=== PATIENT | male | born 1980 | race Caucasian/White ===

== ENCOUNTER 2019-01-13 05:37 | Emergency (ER) | payer SELFPAY ==
[2019-01-13] MEDS ORDERED: KETOROLAC TROMETHAMINE INJ 30 MG/ML VIAL IV ONE (05:50)
[2019-01-13] MEDS ORDERED: ONDANSETRON ODT 8 MG TAB SL ONE (05:50)
[2019-01-13] MEDS ORDERED: SODIUM CHLORIDE 0.9% 1000ML 1,000 ML IVS ONE (05:50)
[2019-01-13] MEDS ORDERED: ALUM & MAG HYDROX-SIMETHICONE 30 ML, LIDOCAINE VISCOUS 2% 15 ML PO ONE ×2 (05:50)
[2019-01-13] MEDS ORDERED: MORPHINE SULFATE INJ 10 MG/ML VIAL IV ONE (05:50)
[2019-01-13] MEDS ORDERED: ALUM & MAG HYDROX-SIMETHICONE 30 ML UD ONE (05:53)
[2019-01-13] MEDS ORDERED: LIDOCAINE HCL 2% (MOUTH-THROAT) 15 ML UD ONE (05:53)
--- NOTE | 2019-01-13 05:54 | ED.PDOC ---
History of Present Illness - General Source: patient Exam Limitations: no limitations - History of Present Illness Initial Comments: the patient is a 38-year-old male presenting to emergency room secondary to right upper quadrant pain that has been pretty constant and achy since around midnight. That is approximately 6 hours. He does have some nausea. One episode of vomiting. No diarrhea. No previous problems with right upper quadrant pain. He does still have his gallbladder. He did likely overindulge at Thanksgiving. He does have pain to palpation there. He does have some guarding there. No syncope or near-syncope. No chest pain. Minimal epigastric discomfort at this time. No lower abdominal pain. Timing/Duration: 4-6 hours Severity: severe Improving Factors: other - the pain is a little better with rocking back and forth but not really with movement otherwise. Worsening Factors: nothing Associated Symptoms: loss of appetite, malaise, nausea/vomiting <Dar Lea - Last Filed: 01/13/19 06:45> <Logan Zaragoza - Last Filed: 01/13/19 07:43> - General Chief Complaint: Abdominal Pain Stated Complaint: RUQ pain onset 0000 Time Seen by Provider: 01/13/19 05:44 - History of Present Illness Allergies/Adverse Reactions: Allergies NO KNOWN ALLERGY Allergy (Verified 01/13/19 05:45) Home Medications: Ambulatory Orders Acetaminophen W/ Codeine [Tylenol W/ CODEINE #3] 2 ea PO Q6H PRN #20 01/13/19 Review of Systems - Review of Systems Constitutional: States: no symptoms reported EENTM: States: no symptoms reported Respiratory: States: no symptoms reported Cardiology: States: no symptoms reported Gastrointestinal/Abdominal: States: abdominal pain, nausea, vomiting Genitourinary: States: no symptoms reported Musculoskeletal: States: no symptoms reported Skin: States: no symptoms reported Neurological: States: anxiety Endocrine: States: no symptoms reported, excessive sweating All other Systems: No Change from Baseline <Dar Lea - Last Filed: 01/13/19 06:45> Past Medical History (General) - Patient Medical History Hx Seizures: No Hx Stroke: No Hx Dementia: No Hx Asthma: No Hx of COPD: No Hx Cardiac Disorders: No Hx Congestive Heart Failure: No Hx Pacemaker: No Hx Hypertension: No Hx Thyroid Disease: No Hx Diabetes: No Hx Gastroesophageal Reflux: No Hx Renal Disease: No Hx Cancer: No Hx of HIV: No Hx Hepatitis C: No Hx MRSA: No Surgical History: no surgical history - Vaccination History Hx Tetanus, Diphtheria Vaccination: No Hx Influenza Vaccination: No - Social History Hx Tobacco Use: Yes Hx Alcohol Use: Yes <Dar Lea - Last Filed: 01/13/19 06:45> Family Medical History - Family History Mother Family History: Unknown <Dar Lea - Last Filed: 01/13/19 06:45> Physical Exam - Physical Exam General Appearance: Alert, Anxious, Obvious distress Eye Exam: bilateral normal Ears, Nose, Throat: hearing grossly normal, normal ENT inspection Neck: full range of motion, supple Respiratory: lungs clear, normal breath sounds, no respiratory distress, no accessory muscle use Cardiovascular/Chest: normal peripheral pulses, regular rate, rhythm, no edema Peripheral Pulses: radial,right: 2+, radial,left: 2+, dorsalis pedis,right: 2+, dorsalis pedis,left: 2+ Gastrointestinal/Abdominal: soft, other - see history of present illness. Pain is colicky in nature. 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 Skin Exam: normal color Comments: Vital Signs - 24 hr 01/13/19 05:40 Temperature 97.5 F L Pulse Rate [ 63 monitor] Respiratory 20 Rate Blood Pressure 148/108 [Left Arm] O2 Sat by Pulse 99 Oximetry <Dar Lea - Last Filed: 01/13/19 06:45> Progress - Progress Progress: 01/13/19 06:36 the patient's symptoms have somewhat improved with Toradol, morphine and Zofran. He is also being bolused a liter of IV fluids. Laboratory work does indicate some significant leukocytosis. X-ray of the abdomen and pelvis shows a few scattered dilated loops of bowel. No definitive obstruction. No free air. A CT scan of the abdomen and pelvis is going to be ordered with contrast. He will remain nothing by mouth for now. - Results/Orders Results/Orders: EKG taken when the patient was at his most nauseated shows a sinus bradycardia 53 bpm with occasional PACs. He does have an early right bundle branch block. He does have mild diffuse J-point elevation all less than [address] segment or T-wave changes indicative of acute ischemia. No previous EKGs for comparison. Normal axis. acute abdominal series shows a few scattered mildly dilated loops of bowel. No definitive obstruction. No perforation. See report for details. <Dar Lea - Last Filed: 01/13/19 06:45> - Progress Progress: Patient turned over to me by Dr. Lea. Patient's CAT scan has resulted and shows distention of the gallbladder with gallstones but no obvious cholecystitis. I am told by nursing staff that we do not have ultrasound services today. Patient's LFTs are normal with the exception of mildly elevated bilirubin and his WBC is elevated at 15. Patient reexamined and he indicates that he is completely pain free. His abdominal exam by me at this time reveals no right upper quadrant tenderness to palpation and despite his elevated WBC I have low clinical suspicion for cholecystitis. I have offered patient admission for cholecystectomy but patient declines saying that he feels well and would prefer to follow up as an outpatient with the general surgeon. I have attempted to contact Dr. 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 Will give patient a referral to Dr. Andre and I have discussed with him strict return to ED precautions to include but not limited to uncontrolled pain, vomiting, and fever. Vital signs stable, patient NAD and looks clinically well and is safe for discharge with outpatient follow-up. Follow-up instructions, discharge instructions and return to ED precautions discussed with patient, Patient voices understanding and willingness to comply with instructions. All laboratory and radiographic results have been discussed with the patient, and all questions answered.. Patient happy with plan. -- Darell Zaragoza MD 01/13/19 07:32 - Results/Orders Results/Orders: 01/13/19 06:00 EKG STAT 01/13/19 06:34 Hold Metformin x 48Hrs [id number] 01/13/19 07:19 Piperacillin/Tazobactam [Zosyn] 3.375 gm Sodium Chloride 0.9% 100Ml [NS (NACL 0.9%) 100ml] 100 ml IVPB ONCE Laboratory Results - last 24 hr 01/13/19 01/13/19 01/13/19 06:00 06:00 06:00 WBC 15.0 H RBC 4.75 Hgb 14.5 Hct 40.8 L MCV 86.0 MCH 30.5 MCHC 35.5 RDW 16.8 H Plt Count 220 MPV 8.7 Absolute Neuts (auto) 12.40 H Absolute Lymphs (auto) 1.60 Absolute Monos (auto) 0.80 Absolute Eos (auto) 0.10 Absolute Basos (auto) 0.10 Neutrophils % 82.5 H Lymphocytes % 10.9 L Monocytes % 5.3 Eosinophils % 0.6 L Basophils % 0.7 Sodium 142 Potassium 3.8 Chloride 105 Carbon Dioxide 24 Anion Gap 16.8 BUN 18 Creatinine 0.98 BUN/Creatinine Ratio 18.4 Random Glucose 151 H Serum Osmolality 287.9 Lactic Acid 2.1 Calcium 9.9 Magnesium 2.2 Total Bilirubin 2.0 H AST 18 ALT 20 Alkaline Phosphatase 75 Creatine Kinase 93 CK-MB (CK-2) 2.0 CK-MB (CK-2) % Not Reportable Troponin I < 0.02 B-Natriuretic Peptide 23.8 Serum Total Protein 7.9 Albumin 4.8 Globulin 3.1 Albumin/Globulin Ratio 1.5 Amylase 33 Lipase 29 Urine Color Urine Appearance Urine pH Ur Specific Lincoln Urine Protein Urine Glucose (UA) Urine Ketones Urine Blood Urine Nitrite Urine Bilirubin Urine Urobilinogen Ur Leukocyte Esterase Urine RBC Urine WBC Ur Epithelial Cells Urine Bacteria 01/13/19 06:50 WBC RBC Hgb Hct MCV MCH MCHC RDW Plt Count MPV Absolute Neuts (auto) Absolute Lymphs (auto) Absolute Monos (auto) Absolute Eos (auto) Absolute Basos (auto) Neutrophils % Lymphocytes % Monocytes % Eosinophils % Basophils % Sodium Potassium Chloride Carbon Dioxide Anion Gap BUN Creatinine BUN/Creatinine Ratio Random Glucose Serum Osmolality Lactic Acid Calcium Magnesium Total Bilirubin AST ALT Alkaline Phosphatase Creatine Kinase CK-MB (CK-2) CK-MB (CK-2) % Troponin I B-Natriuretic Peptide Serum Total Protein Albumin Globulin Albumin/Globulin Ratio Amylase Lipase Urine Color Yellow Urine Appearance Clear Urine pH 6.0 Ur Specific Lincoln 1.020 Urine Protein Negative Urine Glucose (UA) Negative Urine Ketones Negative Urine Blood Negative Urine Nitrite NegativeCT Urine Bilirubin Negative Urine Urobilinogen 0.2 Ur Leukocyte Esterase Negative Urine RBC 0 Urine WBC 0 Ur Epithelial Cells 1-3 Urine Bacteria 0 CTAP: IMPRESSION: 1. Distended gallbladder with multiple gallstones. Right upper quadrant ultrasound may be obtained for further evaluation as clinically warranted 2. Splenomegaly, nonspecific. <Logan Zaragoza - Last Filed: 01/13/19 07:43> Departure <Dar Lea - Last Filed: 01/13/19 06:45> - Departure Time of Disposition: 07:40 Diet: low fat, low cholesterol <Logan Zaragoza - Last Filed: 01/13/19 07:43> - Departure Clinical Impression: Biliary colic Abdominal pain Qualifiers: Abdominal location: right upper quadrant Qualified Code(s): R10.11 - Right upper quadrant pain Gallstones without obstruction of gallbladder Qualifiers: Cholelithiasis location: gallbladder Disposition: Discharge to Home or Self Care Condition: Good Departure Forms: ED Discharge - Pt. Copy, Patient Portal Self Enrollment Instructions: DI for Abdominal Pain-Adult, Gallstones (DC) Referrals: Shaka Andre MD [Active Staff] - 1-2 Days (For consideration of gallbladder surgery) Prescriptions: Acetaminophen W/ Codeine [Tylenol W/ CODEINE #3] 2 ea PO Q6H PRN #20 PRN Reason: Pain Home Medications: Ambulatory Orders Acetaminophen W/ Codeine [Tylenol W/ CODEINE #3] 2 ea PO Q6H PRN #20 01/13/19
--- NOTE | 2019-01-13 06:30 | RAD ---
EXAM: XR Abdomen, 2 Views and XR Chest, 1 View CLINICAL HISTORY: The patient is 38 years old and is Male; ruq pain 5 hours TECHNIQUE: Frontal view of the chest, frontal view of the abdomen/pelvis and upright or decubitus view of the abdomen. COMPARISON: No relevant prior studies available. FINDINGS: Lungs: No acute lung findings. No focal lung consolidation. Pleural space: Unremarkable. No pneumothorax. Heart: Unremarkable. No cardiomegaly. Mediastinum: Unremarkable. Intraperitoneal space: No free air. Gastrointestinal tract: Scattered gas-distended loops of bowel in a nonspecific but nonobstructive pattern. Bones/joints: Unremarkable. IMPRESSION: 1. Scattered gas-distended loops of bowel in a nonspecific but nonobstructive pattern. 2. No acute lung findings. No focal lung consolidation. Electronically signed by: Rodriguez Ulloa MD 01/13/2019 6:28 AM [facility]
--- NOTE | 2019-01-13 07:02 | CT ---
EXAM: CT Abdomen and Pelvis With Intravenous Contrast CLINICAL HISTORY: The patient is 38 years old and is Male; ruq pain 6 hours, leukocytosis TECHNIQUE: Axial computed tomography images of the abdomen and pelvis with intravenous contrast. Sagittal and coronal reformatted images were created and reviewed. This CT exam was performed using one or more of the following dose reduction techniques: automated exposure control, adjustment of the mA and/or kV according to patient size, and/or use of iterative reconstruction technique. COMPARISON: No relevant prior studies available. FINDINGS: Lung bases: Unremarkable. No mass. No consolidation. ABDOMEN: Liver: Unremarkable. No mass. Gallbladder and bile ducts: Distended gallbladder with multiple gallstones. No ductal dilation. Pancreas: Unremarkable. No mass. No ductal dilation. Spleen: Splenomegaly, nonspecific. Adrenals: Unremarkable. No mass. Kidneys and ureters: Unremarkable. No solid mass. No hydronephrosis. Stomach and bowel: Unremarkable. No obstruction. No mucosal thickening. PELVIS: Appendix: No findings to suggest acute appendicitis. Bladder: Unremarkable. No mass. Reproductive: Unremarkable as visualized. ABDOMEN and PELVIS: Intraperitoneal space: Unremarkable. No free air. No significant fluid collection. Bones/joints: No acute fracture. No dislocation. Soft tissues: Unremarkable. Vasculature: Unremarkable. No abdominal aortic aneurysm. Lymph nodes: Unremarkable. No enlarged lymph nodes. IMPRESSION: 1. Distended gallbladder with multiple gallstones. Right upper quadrant ultrasound may be obtained for further evaluation as clinically warranted 2. Splenomegaly, nonspecific. Electronically signed by: Rodriguez Ulloa MD 01/13/2019 7:01 AM DIVISION DIRECT[employer]
[2019-01-13] MEDS ORDERED: PIPERACILLIN/TAZOBACTAM 3.375 GM in SODIUM CHLORIDE 0.9% 100ML 100 ML IVPB ONE (07:19)
[2019-01-13] MEDS ORDERED: PIPERACILLIN/TAZOBACTAM 3.375 GM VIAL IVPB ONE (07:31)
[2019-01-13] MEDS ORDERED: SODIUM CHLORIDE 0.9% 100ML 0 ML IVPB ONE (07:32)
[2019-01-13 07:53] VITALS: BP 135/105; TEMP 97.9; O2SAT 98
== END 2019-01-13 07:52 | disposition home or self-care (01) ==
LOC: ER 05:37
DX: K80.20 Calculus of gallbladder without cholecystitis without obstruction (principal); D73.89 Other diseases of spleen; R00.1 Bradycardia, unspecified; I45.10 Unspecified right bundle-branch block; Z87.891 Personal history of nicotine dependence
CPT/HCPCS: 36415; 74019; 74177; 80053; 81001; 82150; 82550; 82553; 83605; 83690; 83735; 83880; 84484; 85025; 93005; J1885; J2270; J7030

== ENCOUNTER → 2019-12-25 | Outpatient (CLI) | payer SELFPAY ==
--- NOTE | 2019-12-25 15:46 | US ---
EXAM DESCRIPTION: Gall Bladder: ULTRASOUND. CLINICAL HISTORY: history of gallstones COMPARISON: CT scan abdomen and pelvis December 2018. TECHNIQUE: Transabdominal scanning: Bailey-scale and Doppler modes. FINDINGS: Gallbladder: Slightly decreased in size with multiple gravity dependent echogenic stones with posterior acoustic shadowing. Largest stone measures 7.8 x 6.6 mm. No fluid around the gallbladder. Wall thickening, 7.0 mm diverticulum on the hepatic wall. Non-tender with transducer pressure. Common bile duct: caliber 5.7 mm within normal limits. Liver: normal echogenicity; contour liver capsule smooth where seen. No fluid around the liver. Intrahepatic biliary ducts normal caliber. Doppler hepatopedal flow portal vein.. 11 mm caliber portal vein normal. Long axis right lobe 16.8 cm. Pancreas: normal size Normal echogenicity. Duct not seen. Aorta: Normal proximal caliber 1.6 cm . Right kidney: long axis is 9.4 cm; volume 175.8 mL.. Normal cortical thickness and echogenicity. No echogenic stones and no hydronephrosis. IMPRESSION: 1. Gallbladder with wall thickening and layering gallstones. Diverticula extending into the hepatic wall. No free fluid. Nontender with transducer pressure. Common bile duct normal caliber. 2. Liver and pancreas negative. Proximal abdominal aorta unremarkable caliber and normal sonography of the right kidney. Electronically signed by: Ze Horowitz MD 12/25/2019 3:44 PM [employer]AR DOWN WORK[employer]
== END ==
LOC: US 14:44
PROVIDERS: ATTEND Nurse Practitioner Family
DX: K80.20 Calculus of gallbladder without cholecystitis without obstruction (principal); K57.90 Diverticulosis of intestine, part unspecified, without perforation or abscess without bleeding; Z87.19 Personal history of other diseases of the digestive system

== ENCOUNTER 2020-02-06 05:43 | Day surgery (SDC) | payer OTHER ==
[2020-02-06] MEDS ORDERED: levoFLOXacin 500MG IV 100 ML IVPB ONE (06:43)
[2020-02-06] MEDS ORDERED: LACTATED RINGERS 1,000 ML ONE (06:43)
[2020-02-06] MEDS ORDERED: DEXAMETHASONE INJ 10 MG/ML VIAL ONE (07:00)
[2020-02-06] MEDS ORDERED: MAGNESIUM SULFATE INJ 1 GM/2 ML VIAL ONE (07:00)
[2020-02-06] MEDS ORDERED: LIDOCAINE 1% 10 ML VIAL INJ ONE (07:00)
[2020-02-06] MEDS ORDERED: diphenhydrAMINE HCL 50 MG/ML VIAL ONE (07:00)
[2020-02-06] MEDS ORDERED: PROPOFOL 200 MG/20 ML VIAL IV ONE (07:00)
[2020-02-06] MEDS ORDERED: BUPIVACAINE 0.25% W/EPI 50 ML VIAL INJ ONE (07:14)
[2020-02-06] MEDS ORDERED: HEPARIN SODIUM (PORCINE) 10,000 UNITS/ML VIAL ONE (07:14)
[2020-02-06] MEDS ORDERED: DEXMEDETOMIDINE HCL 200 MCG/2 ML INJ IV ONE (09:15)
[2020-02-06] MEDS ORDERED: SUGAMMADEX SODIUM 200 MG/2 ML VIAL IV ONE (09:15)
[2020-02-06] MEDS ORDERED: ROCURONIUM BROMIDE 10 MG/ML VIAL ONE ×2 (09:16→10:25)
[2020-02-06] MEDS ORDERED: FAMOTIDINE INJ 10 MG/ML VIAL IV ONE (09:16)
[2020-02-06] MEDS ORDERED: MIDAZOLAM INJ 2 MG/2 ML VIAL ONE (09:16)
[2020-02-06] MEDS ORDERED: KETAMINE HCL 100 MG/ML VIAL ONE (09:16)
[2020-02-06] MEDS ORDERED: fentaNYL CITRATE INJ 50 MCG/ML 2 ML AMP ONE (09:16)
[2020-02-06] MEDS ORDERED: HYDROmorphone HCL INJ 2 MG/ML VIAL ONE (11:26)
[2020-02-06] MEDS ORDERED: LACTATED RINGERS 200 ML IVS ONE (12:20)
[2020-02-06] MEDS ORDERED: ONDANSETRON INJ 4 MG/2 ML VIAL ONE (12:46)
[2020-02-06] MEDS ORDERED: ONDANSETRON INJ 4 MG/2 ML VIAL IV ONE (12:46)
--- NOTE | 2020-02-06 13:17 | OP ---
DATE OF PROCEDURE: 02/06/20 PREOPERATIVE DIAGNOSIS: 1. Symptomatic cholelithiasis. 2. History of jaundice status post ERCP. POSTOPERATIVE DIAGNOSIS: 1. Symptomatic cholelithiasis. 2. History of jaundice status post ERCP. 3. Acute gangrenous cholecystitis. PROCEDURE: 1. Laparoscopy, cholecystectomy and intraoperative cholangiography using fluoroscopy. SURGEON: Shaka Andre MD. APPLICATIONS SUPPORT SPECIALIST: None. ANESTHESIA: Local infiltration of 0.25% Marcaine with epinephrine and general endotracheal anesthesia. INDICATION: The patient is a 39-year-old male who I saw over a year ago and planned a cholecystectomy for symptomatic cholelithiasis. He became quite nervous and cancelled surgery. Two to three weeks ago, he became acutely ill with right upper quadrant pain with radiation to the back and some nausea. I talked to him over the phone, planned a cholecystectomy and preoperative laboratory prior to me seeing him revealed a bilirubin of 7.2, so he saw Dr. Amezcua, senior research project manager in [place], who did an ERCP and found no stones, but did perform a sphincterotomy of the sphincter of Oddi. The patient's bilirubin has come down to 1.5 and he is generally asymptomatic, feeling much better with no fever. The patient was brought to the Surgical Suite today for cholecystectomy with cholangiography after the risks, benefits and alternatives to the procedure were discussed and accepted. FINDINGS: The gallbladder was covered with omentum with acute adhesions. The gallbladder wall was thick and edematous and the posterior gallbladder wall was quite gangrenous. There were multiple small stones. Intraoperative cholangiography revealed free flow into the duodenum with no filling defects or strictures noted. DESCRIPTION OF PROCEDURE: After adequate general endotracheal anesthesia was obtained in the supine position, the patient was prepped and draped in the usual sterile manner. Surgical time-out was taken. The infraumbilical area was infiltrated with local anesthesia. A curvilinear incision was fashioned and carried down through the subcutaneous tissue to the midline fascia. Traction sutures were placed on either side of the midline. A small incision was made in the midline fascia and the peritoneum was opened bluntly. Yessi trocar was introduced under direct vision into the abdominal cavity and fixed in place with the 20 mL balloon. CO2 was then insufflated until a pressure of 12 mmHg was reached and the abdomen was tympanitic in all four quadrants. When this was done, the laparoscope was introduced. The abdomen was inspected with the previously noted findings. The patient was then placed in reverse Trendelenburg position and turned to the left side. The upper abdominal ports were placed under direct vision in the usual manner. At this point, tedious dissection using blunt dissection and electrocautery was used to tease the omentum off the gallbladder and this was carried from the body of the gallbladder down toward the neck and eventually the neck was cleared. The darryl hepatis was then explored with blunt dissection. The cystic duct was identified and isolated. The cystic artery was identified, isolated and hemoclipped. When this was done, the cystic duct was hemoclipped proximally. A small incision was made in the cystic duct. The cholangiogram catheter was introduced through a separate stab wound in the right upper quadrant, introduced into the cystic duct and clipped in place. Cholangiograms were then taken using fluoroscopy which revealed free flow into the duodenum with no filling defects or strictures noted. Three branches of the hepatic duct were identified and there were no filling defects, strictures or leaks identified. At this point, the catheter was removed. The cystic duct was hemoclipped three times distally and divided between the hemoclips. The cystic artery was then clipped on at least two different branches and divided. The gallbladder was then dissected free from the gallbladder bed of the liver with significant difficulty due to the gangrenous nature of the wall. Several stones were lost and picked up using graspers. When this was done, the gallbladder was placed in an EndoCatch bag and removed from the infraumbilical port site in the usual manner under direct vision. When this was done, the subhepatic space and subphrenic space were irrigated copiously with saline. Several extra small stones were identified and removed. Several clots were removed. The gallbladder bed of the liver revealed good hemostasis. The darryl hepatis revealed no bile leak and no active bleeding identified. Due to the gangrenous nature, a 5 mm round ARACELIS drain was introduced through the lateral port site into the gallbladder bed of the liver down to the port of hepatis. It was sutured in place with a 3-0 Nylon ligature. When this was done, again, hemostasis was noted to be adequate. The upper abdominal ports were removed under direct vision. At this point, the CO2, the laparoscope and the infraumbilical port were removed. The infraumbilical port site fascia was approximated with a single [id number]-avweg suture of 0 Vicryl. Subcutaneous tissue was irrigated with saline. Skin edges were approximated with 4-0 Vicryl subcuticular sutures, benzoin and Steri-Strips. The ARACELIS drain was cut to appropriate length and a suction grenade was attached and placed to suction. The patient tolerated the procedure well. Estimated blood loss was approximately than 50 to 75 mL. All sponge, needle and instrument counts were correct. #[id number] [facility]
[2020-02-06] MEDS ORDERED: ACETAMINOPHEN W/ COD #4 TAB 1EA TAB ONE (13:20)
[2020-02-06] MEDS ORDERED: ACETAMINOPHEN W/ COD #4 TAB 1EA TAB PO ONE (13:20)
[2020-02-06 14:29] VITALS: BP 124/69; TEMP 96.5; O2SAT 96
--- NOTE | 2020-02-07 08:50 | RAD ---
EXAM DESCRIPTION: Fluoroscopy Up to 1Hr CLINICAL HISTORY: 39 years Male, IOC COMPARISON: None. TECHNIQUE: Fluoroscopic images from an intraoperative cholangiogram. Fluoroscopy time: 12.3 seconds Fluoroscopic images: 2 Total dose: 2.47 mGy IMPRESSION: Intraprocedural fluoroscopic images saved for the benefit of the surgeon. Cannulation of the cystic duct with opacification of the biliary tree. Nondilated common bile duct. Possible filling defect within the proximal common bile duct near the insertion of the cystic duct. This may represent air bubble, injured stone, or superimposed bowel gas. The pancreatic duct is not visualized. Please refer to procedural report for full details. Electronically signed by: Lemuel Yadav MD 02/07/2020 8:48 AM [facility]
== END 2020-02-06 14:17 | disposition home or self-care (01) ==
LOC: AMB 05:43
PROVIDERS: ATTEND Surgery
DX: K80.12 Calculus of gallbladder with acute and chronic cholecystitis without obstruction (principal); K82.8 Other specified diseases of gallbladder; K82.A1 Gangrene of gallbladder in cholecystitis; F17.200 Nicotine dependence, unspecified, uncomplicated; Z88.0 Allergy status to penicillin
CPT/HCPCS: 00790; 36415; 47563; 76000; 80053; 85025; J1100; J1170; J1200; J1644; J1956; J2250; J2405; J3010; J3475; J3490; J7120